=== PATIENT | female | born 2005 | race Caucasian/White ===

== ENCOUNTER 2025-03-23 11:00 | Observation (INO) | payer MEDICAID ==
[2025-03-23 12:28] LABS: BASOPHIL % 0.5 % (0.1-1.2); Basophil (Absolute #) 0.06 x10^3/uL (0.01-0.08); Eosinophil (Absolute #) 0.09 x10^3/uL (0.04-0.36); Hematocrit 37.3 % (34.1-44.9); Hemoglobin 12.4 g/dL (11.2-15.7); IMMATURE GRAN # 0.10 x10^3u/L (0.001-0.031); IMMATURE GRAN % 0.8 % (0.001-0.429); Lymphocyte (Absolute #) 2.35 x10^3/uL (1.18-3.74); Mean Corpuscular Hemoglobin 30.0 pg (25.6-32.2); Mean Corpuscular Hgb Concent. 33.2 g/dL (32.2-35.5); Monocyte (Absolute #) 0.72 x10^3/uL (0.24-0.86); NUCLEATED RBC # 0.00 x10^3u/L (0.00-0.012); NUCLEATED RBC % 0.0 % (0.00-0.2); Platelet Count 232 x10^3/uL (182-369); Red Blood Count 4.13 x10^6/uL (3.93-5.22); White Blood Count 12.9 x10^3/uL (3.98-10.04)
[2025-03-23 12:30] VITALS: BP 120/72; PULSE 101; RESP 18; TEMP 98.4; O2SAT 96
[2025-03-23 12:46] LABS: Calcium 9.3 mg/dL (8.4-10.2); Carbon Dioxide 18.0 mmol/L (22-30); Creatinine 1 0.53 mg/dL (0.52-1.04); EST GLOMERULAR FILTRATION RATE 136.5 ML/MIN; Glucose 105.0 mg/dL (74-106); LDH-LACTATE DEHYDROGENASE 152.0 U/L (120-246); Potassium 4.1 mmol/L (3.5-5.1); SGOT/AST 22.0 U/L (14-36); SGPT/ALT 14.0 U/L (0-35); Total Protein 7.2 g/dL (6.3-8.2); Uric Acid 4.7 mg/dL (2.6-6.0)
[2025-03-23 12:48] LABS: Glucose, Urine Negative (Negative); Protein,Urine Dip 30 (Negative); RBC 0-2 /HPF (0-5)
[2025-03-23 12:49] LABS: Amourphous Crystal Moderate /HPF (None Seen)
[2025-03-23 13:04] LABS: Amphetamine,Urine NEGATIVE (NEGATIVE); Barbiturate,Urine NEGATIVE (NEGATIVE); Benzodiazepine,Urine NEGATIVE (NEGATIVE); Cocaine,Urine NEGATIVE (NEGATIVE); Methadone,Urine NEGATIVE (NEGATIVE); Opiate,Urine NEGATIVE (NEGATIVE); PCP,Urine NEGATIVE (NEGATIVE); THC,Urine NEGATIVE (NEGATIVE); TP, Urine Random 8.0 mg/dl (<12)
[2025-03-23 13:08] LABS: Creatinine, Urine Random 259.5 mg/dl; Protein Creatinine Ratio, Ran. 0.03 mg/mg (0.0-0.15)
== END 2025-03-23 12:05 | disposition home or self-care (01) ==
LOC: WHC 11:00 → OB 12:05
PROVIDERS: ADMIT Obstetrics & Gynecology; ATTEND Obstetrics & Gynecology
DX: Z34.03 Encounter for supervision of normal first pregnancy, third trimester (principal); Z3A.38 38 weeks gestation of pregnancy

== ENCOUNTER 2025-03-28 00:02 | Inpatient (IN) | payer MEDICAID ==
[2025-03-28] MEDS ORDERED: CYTOTEC PO SCH (04:00)
[2025-03-28 09:10] LABS: BASOPHIL % 0.6 % (0.1-1.2); Basophil (Absolute #) 0.07 x10^3/uL (0.01-0.08); Eosinophil (Absolute #) 0.09 x10^3/uL (0.04-0.36); Hematocrit 36.0 % (34.1-44.9); Hemoglobin 12.0 g/dL (11.2-15.7); IMMATURE GRAN # 0.06 x10^3u/L (0.001-0.031); IMMATURE GRAN % 0.5 % (0.001-0.429); Lymphocyte (Absolute #) 2.87 x10^3/uL (1.18-3.74); Mean Corpuscular Hemoglobin 30.1 pg (25.6-32.2); Mean Corpuscular Hgb Concent. 33.3 g/dL (32.2-35.5); Monocyte (Absolute #) 0.70 x10^3/uL (0.24-0.86); NUCLEATED RBC # 0.00 x10^3u/L (0.00-0.012); NUCLEATED RBC % 0.0 % (0.00-0.2); Platelet Count 218 x10^3/uL (182-369); Red Blood Count 3.99 x10^6/uL (3.93-5.22); White Blood Count 11.4 x10^3/uL (3.98-10.04)
[2025-03-28] MEDS: CYTOTEC PO SCH (09:16)
[2025-03-28 09:32] LABS: Glucose, Urine Negative (Negative); Protein,Urine Dip 30 (Negative)
[2025-03-28 09:40] LABS: Amphetamine,Urine NEGATIVE (NEGATIVE); Barbiturate,Urine NEGATIVE (NEGATIVE); Benzodiazepine,Urine NEGATIVE (NEGATIVE); Cocaine,Urine NEGATIVE (NEGATIVE); Methadone,Urine NEGATIVE (NEGATIVE); Opiate,Urine NEGATIVE (NEGATIVE); PCP,Urine NEGATIVE (NEGATIVE); THC,Urine NEGATIVE (NEGATIVE)
[2025-03-28 09:58] LABS: ABO TYPING O; RH TYPING POSITIVE
[2025-03-28] MEDS: TYLENOL EXTRA STRENGTH 500 MG PO PRN (10:05)
[2025-03-28] MEDS: Lactated Ringers 1,000 ML IV SCH (10:30)
[2025-03-28] MEDS ORDERED: XYLOCAINE 1% HCL 20 ML MDV IJ PRN (14:00)
[2025-03-28] MEDS ORDERED: PITOCIN 30 UNITS/ LR 500 ML 30 UNITS/500 ML PLAST..BAG IV SCH ×2 (14:00→18:00)
[2025-03-28] MEDS ORDERED: Ephedrine Sulfate 50 MG/ML IV PRN (20:19)
[2025-03-28] MEDS: Lactated Ringers 1,000 ML IV ONE (20:20)
[2025-03-28] MEDS: FENTANYL 2 MCG-BUPIV 0.125%-NS 250 ML Epidur 250 ML EPIDURAL SCH (21:45)
[2025-03-29] MEDS: PITOCIN 30 UNITS/ LR 500 ML 30 UNITS/500 ML PLAST..BAG IV SCH (01:02)
[2025-03-29] MEDS ORDERED: Sensorcaine 0.25% 10 ML ONE (02:20)
[2025-03-29] MEDS ORDERED: SUBLIMAZE 100 MCG/2 ML ONE (02:21)
[2025-03-29] MEDS: Zofran 4 MG/2 ML VIAL IV PRN (11:58)
[2025-03-29] MEDS: TUCKS TP PRN (16:34)
[2025-03-29] MEDS: Dermoplast Spray TP PRN (16:35)
[2025-03-29] MEDS: LANSINOH 40 GM TOP PRN (16:35)
[2025-03-29] MEDS: MOTRIN 400 MG PO PRN (17:02)
[2025-03-29] MEDS: Docusate Sodium 100 MG PO SCH (22:16)
[2025-03-30 04:34] LABS: BASOPHIL % 0.6 % (0.1-1.2); Basophil (Absolute #) 0.08 x10^3/uL (0.01-0.08); Eosinophil (Absolute #) 0.05 x10^3/uL (0.04-0.36); Hematocrit 30.1 % (34.1-44.9); Hemoglobin 10.1 g/dL (11.2-15.7); IMMATURE GRAN # 0.09 x10^3u/L (0.001-0.031); IMMATURE GRAN % 0.6 % (0.001-0.429); Lymphocyte (Absolute #) 3.38 x10^3/uL (1.18-3.74); Mean Corpuscular Hemoglobin 30.1 pg (25.6-32.2); Mean Corpuscular Hgb Concent. 33.6 g/dL (32.2-35.5); Monocyte (Absolute #) 1.04 x10^3/uL (0.24-0.86); NUCLEATED RBC # 0.00 x10^3u/L (0.00-0.012); NUCLEATED RBC % 0.0 % (0.00-0.2); Platelet Count 176 x10^3/uL (182-369); Red Blood Count 3.36 x10^6/uL (3.93-5.22); White Blood Count 14.1 x10^3/uL (3.98-10.04)
--- NOTE | 2025-03-30 07:42 | PCM.NOTE ---
Date and Time: 03/30/25740 Subjective Assessment: ppd 1 sp pt resting in bed able to ambulate and tolerate diet vss afebrile abd;soft uterus; firm lochia; mild hgb; 10 a/p sp ppd 1 dc home tomorrow should fu office in 3 wks Objective Data Vital Signs: Vital Signs - 24 hr Temp Pulse Resp BP BP Pulse Ox 03/30/25 02:00 98.6 F 81 18 126/66 97 03/29/25 20:00 98.6 F 74 18 126/60 100 03/29/25 18:00 98.3 F 100 H 20 122/67 100 03/29/25 17:00 98.3 F 100 H 20 127/76 100 03/29/25 16:45 98.3 F 90 20 120/65 98 03/29/25 16:15 98.6 F 109 H 20 131/62 99 03/29/25 16:00 98.3 F 90 20 120/65 98 03/29/25 15:45 98.6 F 97 H 20 131/64 99 03/29/25 15:30 98.6 F 102 H 20 133/66 97 03/29/25 15:00 98.6 F 103 H 20 131/62 98 03/29/25 14:45 98.6 F 97 H 20 131/64 98 03/29/25 14:30 98.6 F 90 20 130/80 98 03/29/25 14:15 98.8 F 102 H 18 119/59 97 03/29/25 14:00 98.8 F 84 18 120/58 97 03/29/25 13:45 98.8 F 126 H 18 138/79 97 03/29/25 13:30 98.8 F 85 18 125/68 96 03/29/25 13:15 98.8 F 85 18 121/63 99 03/29/25 13:00 98.8 F 75 18 121/65 99 03/29/25 12:45 98.8 F 85 18 120/58 99 03/29/25 12:30 98.8 F 85 18 117/57 99 03/29/25 12:15 98.8 F 88 18 131/92 99 03/29/25 12:00 98.8 F 84 18 132/76 132/76 97 03/29/25 11:45 98.8 F 76 18 107/60 97 03/29/25 11:30 98.8 F 79 18 105/57 98 03/29/25 11:15 98.8 F 86 18 108/59 98 03/29/25 11:00 98.8 F 70 18 99/50 98 03/29/25 10:45 98.8 F 69 18 99/53 98 03/29/25 10:30 98.8 F 68 18 99/55 98 03/29/25 10:15 98.8 F 82 18 105/74 98 03/29/25 10:00 98.8 F 83 18 115/65 97 03/29/25 09:45 98.3 F 82 18 114/62 97 03/29/25 09:30 98.3 F 85 18 111/62 97 03/29/25 09:15 98.3 F 98 H 18 120/61 96 03/29/25 09:00 98.3 F 84 18 114/56 96 03/29/25 08:45 98.3 F 79 18 112/54 97 03/29/25 08:30 98.3 F 104 H 18 132/61 97 03/29/25 08:15 98.3 F 104 H 18 132/61 97 03/29/25 08:00 98.3 F 98 H 18 116/67 97 03/29/25 07:45 98.3 F 116 H 18 121/81 98 Pain Assessment - Last Documented Pain Intensity [Lower] 4 Pain Intensity 2 Pain Scale Used 0-10 Pain Scale Intake and Output: Intake & Output 03/27/25 03/28/25 03/29/25 03/30/25 11:59 11:59 11:59 11:59 Intake Total 500 5280 2000 Output Total 1050 1400 Balance 500 4230 600 Weight 92.079 kg Lab Results: Lab Results-Last 24 Hours 03/30/25 Range/Units 04:30 WBC 14.1 H (3.98-10.04) x10^3/uL RBC 3.36 L (3.93-5.22) x10^6/uL Hgb 10.1 L (11.2-15.7) g/dL Hct 30.1 L (34.1-44.9) % MCV 89.6 (79.4-94.8) fL MCH 30.1 (25.6-32.2) pg MCHC 33.6 (32.2-35.5) g/dL RDW 12.2 (11.7-14.4) % Plt Count 176 L (182-369) x10^3/uL MPV 11.3 (9.4-12.3) fL Gran % 67.0 (34.0-71.1) % Immature Gran % (Auto) 0.6 H (0.001-0.429) % Nucleat RBC Rel Count 0.0 (0.00-0.2) % Eos # (Auto) 0.05 (0.04-0.36) x10^3/uL Immature Gran # (Auto) 0.09 H (0.001-0.031) x10^3u/L Absolute Lymphs (auto) 3.38 (1.18-3.74) x10^3/uL Absolute Monos (auto) 1.04 H (0.24-0.86) x10^3/uL Absolute Nucleated RBC 0.00 (0.00-0.012) x10^3u/L Lymphocytes % 24.0 (19.3-51.7) % Monocytes % 7.4 (4.7-12.5) % Eosinophils % 0.4 L (0.7-5.8) % Basophils % 0.6 (0.1-1.2) % Absolute Granulocytes 9.47 H (1.56-6.13) x10^3/uL Basophils # 0.08 (0.01-0.08) x10^3/uL Medications: Medications Generic Name Dose Route Start Last Admin Trade Name Lauro PRN Reason Stop Dose Admin Acetaminophen 1,000 mg 03/28/25 08:00 03/29/25 22:16 Acetaminophen 500 Mg Tablet PO 04/27/25 07:59 1,000 mg Q4H PRN PRN Administration HEADACHE/MILD PAIN/ FEVER Benzocaine 40 gm 03/29/25 14:50 03/29/25 16:35 Benzocaine/Lanolin/Aloe Vera 85 Gm Can TP 04/28/25 14:49 40 gm UD PRN Administration perineum laceration Docusate Sodium 100 mg 03/29/25 22:00 03/29/25 22:16 Docusate Sodium 100 Mg Capsule PO 04/28/25 21:59 100 mg BID DEANNE Administration Emollient Ointment 0 gm 03/29/25 14:50 03/29/25 16:35 Lansinoh 40 Gm Tube TOP 04/28/25 14:49 40 gm PRN PRN Administration PAIN Ephedrine Sulfate 10 mg 03/28/25 20:19 Ephedrine Sulfate 50 Mg/Ml IV 04/27/25 20:18 PRN PRN SBP<100 Lactated Ringer's 1,000 mls @ 125 mls/hr 03/28/25 12:00 03/29/25 08:33 Lactated Ringers IV 04/27/25 11:59 125 mls/hr .Q8H DEANNE Administration Oxytocin/Lactated Ringer's 30 units in 500 mls @ 0 mls/hr 03/28/25 18:00 03/29/25 01:02 Pitocin 30 Units/ Lr 500 Ml IV 04/27/25 17:59 1 mls/hr .Q0M DEANNE Administration Protocol Titrate Oxytocin/Lactated Ringer's 30 units in 500 mls @ 5 mls/hr 03/28/25 18:00 Pitocin 30 Units/ Lr 500 Ml IV 04/27/25 17:59 .Q24H DEANNE FENTANYL/BUPIVACAINE/NS/PF 250 mls @ 0 mls/hr 03/28/25 20:30 03/28/25 21:45 Fentanyl 2 Mcg-Bupiv 0.125%-Ns 250 Ml Epidur EPIDURAL 04/27/25 20:29 14 mls/hr .Q0M DEANNE Administration Protocol Titrate Ibuprofen 800 mg 03/29/25 14:50 03/30/25 02:09 Ibuprofen 400 Mg Tablet PO 04/28/25 14:49 800 mg Q6H PRN PRN Administration MODERATE PAIN Lidocaine HCl 10 ml 03/28/25 14:00 Lidocaine Hcl 1% 20 Ml Mdv 20 Ml Ml IJ 04/27/25 13:59 PRN PRN PAIN Ondansetron HCl 4 mg 03/28/25 08:00 03/29/25 11:58 Ondansetron Hcl 4 Mg/2 Ml Vial IV 04/27/25 07:59 4 mg Q4H PRN PRN Administration NAUSEA/VOMITING Polysaccharide Iron Complex 150 mg 03/30/25 10:00 Iron Polysaccharides Complex 150 Mg Capsule PO 11/02/25 09:59 DAILY DEANNE Cayetano Seth 1 pad 03/29/25 14:50 03/29/25 16:34 Witch Dorinda 1 Pad Med..Pad TP 04/28/25 14:49 1 pad PRN PRN Administration ITCHING Discontinued Medications Generic Name Dose Route Start Last Admin Trade Name Lauro PRN Reason Stop Dose Admin Bupivacaine HCl Confirm 03/29/25 02:20 Bupivacaine Hcl 2.5 Mg/Ml 10 Ml Administered 03/29/25 02:21 Dose 10 ml .ROUTE .STK-MED ONE Fentanyl Citrate Confirm 03/29/25 02:21 Fentanyl Citrate 100 Mcg/2 Ml* Vial Administered 03/29/25 02:22 Dose 100 mcg .ROUTE .STK-MED ONE Oxytocin/Lactated Ringer's 30 units in 500 mls @ 5 mls/hr 03/28/25 14:00 Pitocin 30 Units/ Lr 500 Ml IV 04/27/25 13:59 .Q24H DEANNE Lactated Ringer's 1,000 mls @ 999 mls/hr 03/28/25 20:19 03/28/25 20:20 Lactated Ringers IV 03/28/25 21:19 999 mls/hr .Q1H1M ONE Administration Misoprostol 0 mcg 03/28/25 04:00 Misoprostol 100 Mcg Tablet PO 03/28/25 17:59 Q2H DEANNE Taper Misoprostol 50 mcg 03/28/25 09:00 03/28/25 22:02 Misoprostol 100 Mcg Tablet PO 03/28/25 22:59 50 mcg Q2H DEANNE Administration Taper Assessment/Plan (1) Vaginal delivery Current Visit: Yes Status: Acute Code(s): O80 - ENCOUNTER FOR FULL-TERM UNCOMPLICATED DELIVERY
--- NOTE | 2025-03-30 07:45 | PCM.DS ---
Discharge Summary Date of Admission: 03/29/25 07:29 Admitting Physician: DIONE GREEN DO Consults: Consults on Case 03/28/25 20:19 Notify Anesthesia Provider PRN 03/29/25 17:15 Navigation ONCE Primary Care Provider: NO FAMILY DOCTOR Allergies Allergies amoxicillin Allergy (Severe, Verified 03/28/25 09:47) Anaphylactic Reaction Hospital Summary - Hospital Course Hospital Course: pt admitted at 39 5/7 wks gestation on mar 28 for oral cytotec induction and received several doses where she received her epidural on mar 28 and subsequently started on pitocin with delivery of live baby boy without complication on mar 29. during period did well with stable hgb and vital signs. pt was noted having a 2nd degree tear repaired with 2-0 chromic suture. at this time pt stable for discharge on mar 31 and advised to fu in office in 3 wks. all questions answered to her satisfaction. - Vitals & Intake/Output Vital Signs: Vital Signs Temperature 98.6 F 03/30/25 02:00 Pulse Rate 81 03/30/25 02:00 Respiratory Rate 18 03/30/25 02:00 Blood Pressure 126/66 03/30/25 02:00 O2 Sat by Pulse Oximetry 97 03/30/25 02:00 Intake & Output: Intake & Output 03/27/25 03/28/25 03/29/25 03/30/25 11:59 11:59 11:59 11:59 Intake Total 500 5280 2000 Output Total 1050 1400 Balance 500 4230 600 Weight 92.079 kg - Lab Result Diagrams: 03/30/25 04:30 Lab Results-Last 24 Hrs: Lab Results-Last 24 Hours 03/30/25 Range/Units 04:30 WBC 14.1 H (3.98-10.04) x10^3/uL RBC 3.36 L (3.93-5.22) x10^6/uL Hgb 10.1 L (11.2-15.7) g/dL Hct 30.1 L (34.1-44.9) % MCV 89.6 (79.4-94.8) fL MCH 30.1 (25.6-32.2) pg MCHC 33.6 (32.2-35.5) g/dL RDW 12.2 (11.7-14.4) % Plt Count 176 L (182-369) x10^3/uL MPV 11.3 (9.4-12.3) fL Gran % 67.0 (34.0-71.1) % Immature Gran % (Auto) 0.6 H (0.001-0.429) % Nucleat RBC Rel Count 0.0 (0.00-0.2) % Eos # (Auto) 0.05 (0.04-0.36) x10^3/uL Immature Gran # (Auto) 0.09 H (0.001-0.031) x10^3u/L Absolute Lymphs (auto) 3.38 (1.18-3.74) x10^3/uL Absolute Monos (auto) 1.04 H (0.24-0.86) x10^3/uL Absolute Nucleated RBC 0.00 (0.00-0.012) x10^3u/L Lymphocytes % 24.0 (19.3-51.7) % Monocytes % 7.4 (4.7-12.5) % Eosinophils % 0.4 L (0.7-5.8) % Basophils % 0.6 (0.1-1.2) % Absolute Granulocytes 9.47 H (1.56-6.13) x10^3/uL Basophils # 0.08 (0.01-0.08) x10^3/uL Micro Results-Entire Visit: Microbiology 03/28/25 09:03 Urine Culture - Final Clean Catch Midstream <10K NORMAL SKIN TONG PROBABLE SKIN CONTAMINANT Final Diagnosis/Problem List - Final Discharge Diagnosis/Problem (1) Vaginal delivery Current Visit: Yes Status: Acute Code(s): O80 - ENCOUNTER FOR FULL-TERM UNCOMPLICATED DELIVERY - Discharge Disposition: Home, Self-Care Condition: Stable Prescriptions: No Action No.137/Iron/Folic Acd [[facility] Vitamins Tablet] 1 tab PO DAILY Albuterol Common Canister [Ventolin Common Canister] 1 puff NEBULIZE DAILY PRN PRN PRN Reason: Shortness Of Breath/Wheezing Follow up with: DOCTOR,NO FAMILY [Primary Care Provider, UNKNOWN] DIONE GREEN DO [ACTIVE STAFF, OBSTETRICS-GYNECOLOGY] - 3 weeks
[2025-03-30] MEDS: FERREX 150 PO SCH (10:41)
[2025-03-30] MEDS ORDERED: ZOLOFT 50 MG TABLET PO SCH (18:00)
[2025-03-31 02:39] VITALS: RESP 18; O2SAT 99
[2025-03-31 08:28] VITALS: BP 117/68; PULSE 75; TEMP 98
== END 2025-03-31 14:45 | disposition home or self-care (01) | DRG 807 ==
LOC: OB 07:29 → OBSVTOIN 03-29 07:29
PROVIDERS: ADMIT Obstetrics & Gynecology; ATTEND Obstetrics & Gynecology
PROC: 10E0XZZ Delivery of Products of Conception, External Approach (ICD-10-PCS; principal; 2025-03-29)
PROC: 0KQM0ZZ Repair Perineum Muscle, Open Approach (ICD-10-PCS; 2025-03-29)
DX: O70.1 Second degree perineal laceration during delivery (principal); Z37.0 Single live birth; Z3A.39 39 weeks gestation of pregnancy